=== PATIENT | male | born 1995 | race Caucasian/White ===

== ENCOUNTER 2023-06-06 20:38 | Emergency (ER) | payer SELFPAY ==
[2023-06-06 20:51] VITALS: BP 132/74; PULSE 78; RESP 18; TEMP 36.9; O2SAT 99; BMI 30.4
--- NOTE | 2023-06-06 21:16 | ED.BACK ---
HPI - Back Pain/Injury General Chief Complaint: Back Injury/Pain Stated Complaint: Back Pain Time Seen by Provider: 06/06/23 21:01 History of Present Illness HPI Narrative: This 27-year-old male comes in reporting low back pain. He was lifting some heavy K eggs about 9 hours prior to arrival and had a sudden onset of pain in his low back. He states that he had similar pain years ago but otherwise is healthy. He does not report any pain going down either leg. Related Data Home Medications Medication Instructions Recorded Confirmed No Known Home Medications 06/06/23 06/06/23 Allergies Allergy/AdvReac Type Severity Reaction Status Date / Time No Known Drug Allergies Allergy Verified 06/06/23 20:54 Review of Systems Status of ROS: Reports: 10 or more systems reviewed and unremarkable except as noted in History and below Narrative: Constitutional: No fevers, no weight gain or loss. Eyes: No discharge. No vision changes. HENT: No congestion, no sore throat, no ear pain. Cardiovascular: No chest pain, no palpitations. Respiratory: No shortness of breath, no wheezes, no cough. Gastrointestinal: No abdominal pain, no vomiting, no diarrhea. Genitourinary: No dysuria, no hematuria. Musculoskeletal: Normal range of motion. Low back pain as described above. Skin: No rashes, no pruritis. Neurological: No dizziness, weakness, sensory change, speech change. Endo/Heme/Allergies: No bruising or bleeding. No polydipsia. Pysch: no suicidality, no anxiety, no insomnia. All other systems reviewed and are negative. Exam Narrative: Exam Narrative: Constitutional: Well-developed, well-nourished, no acute distress. HEENT: Normocephalic, atraumatic. Neck: Normal range of motion. Nontender. Supple. Heart: Regular. No murmurs. Normal rate. Intact distal pulses. Lungs: Clear to auscultation. No chest discomfort. No wheezes, rhonchi, or rales. Abdomen: Normal bowel sounds. Nontender. No rebound tenderness. Genitalia: Deferred. Back: No midline tenderness. Normal range of motion. No pain radiating down either leg. Pain is located diffusely across the low back. Extremities: Normal range of motion. No injury. Skin: Intact. No rash. Warm. No erythema or pallor. Neurologic: No altered sensation. No weakness. Alert and oriented. Psychiatric: No suicidality. No anxiety or depression. No insomnia. Nursing notes and vitals signs are reviewed. Const: Vital Signs, click to edit/add: Vital Signs - 24 hr 06/06/23 20:51 Temperature 98.5 F Pulse Rate [Right Pulse Oximeter] 78 Respiratory Rate 18 Blood Pressure [Ri ght Upper Arm] 132/74 Pulse Oximetry 99 Oxygen Delivery Me thod Room Air Course Vital Signs Vital signs: Initial Vital Signs Temperature 98.5 F 06/06/23 20:51 Temperature Source Temporal Artery Scan 06/06/23 20:51 Pulse Rate 78 06/06/23 20:51 Respiratory Rate 18 06/06/23 20:51 Blood Pressure 132/74 06/06/23 20:51 Blood Pressure Mean 93 06/06/23 20:51 Blood Pressure Position Sitting 06/06/23 20:51 Pulse Oximetry 99 06/06/23 20:51 Oxygen Delivery Method Room Air 06/06/23 20:51 Vital Signs Temperature 98.5 F 06/06/23 20:51 Pulse Rate 78 06/06/23 20:51 Respiratory Rate 18 06/06/23 20:51 Blood Pressure 132/74 06/06/23 20:51 Pulse Oximetry 99 06/06/23 20:51 Oxygen Delivery Method Room Air 06/06/23 20:51 Temperature 98.5 F 06/06/23 20:51 Pulse Rate 78 06/06/23 20:51 Respiratory Rate 18 06/06/23 20:51 Blood Pressure 132/74 06/06/23 20:51 Pulse Oximetry 99 06/06/23 20:51 Oxygen Delivery Method Room Air 06/06/23 20:51 MDM - Back Pain/Injury MDM Narrative Medical decision making narrative: This patient comes in with low back pain due to a muscle strain as he was lifting some heavy items earlier today. There is no sign of radicular symptoms or radiating pain. The patient has normal range of motion and is ambulatory. X-ray imaging is not indicated given no significant mechanism of injury. The patient did receive an intramuscular injection of Toradol 30 mg. Prescriptions for Toradol and Flexeril are also provided. A return to work note is also written. Discharge Plan Discharge Clinical Impression: Acute lumbar myofascial strain Patient Disposition: Home, Self-Care Condition: Stable Additional Instructions: Take medications as needed and indicated. Increase activity as tolerated. Follow up with MD or return if worsening. Prescriptions: No Action No Known Home Medications Stand Alone Forms: [employer] Info Instructions
[2023-06-06 21:26] VITALS: TEMP 36.9
[2023-06-06] MEDS: KETOROLAC 30 MG/ML inj IM (21:26)
[2023-06-06 21:30] VITALS: BP 125/84; PULSE 84; RESP 18; TEMP 36.9; O2SAT 99
[2023-06-06 21:35] VITALS: BP 125/84; PULSE 84; RESP 18; TEMP 36.9
== END 2023-06-06 21:35 | disposition home or self-care (01) ==
LOC: ED 21:33
PROVIDERS: Emergency Provider Emergency Medicine Emergency Medical Services
DX: S39.012A Strain of muscle, fascia and tendon of lower back, initial encounter (principal); X50.0XXA Overexertion from strenuous movement or load, initial encounter
CPT/HCPCS: 96372; 99284; J1885

== ENCOUNTER 2024-02-10 05:07 | Emergency (ER) | payer BC, SELFPAY ==
[2024-02-10 05:19] VITALS: BP 142/77; PULSE 88; RESP 30; TEMP 37.1; O2SAT 100; BMI 32.1
[2024-02-10] MEDS: LORazepam 0.5 MG TABLET PO (05:43)
--- NOTE | 2024-02-10 05:46 | ED_ITS ---
HPI - General Adult General Chief complaint: Anxiety Stated complaint: panic attack Time Seen by Provider: 02/10/24 05:22 Source: patient Mode of arrival: ambulatory History of Present Illness HPI narrative: Patient dropped off by a friend the emergency department. When he awoke at 4:00 a.m. this morning, he had a feeling of anxiety accompanied by feeling of shortness of breath and numbness and tingling in his bilateral hands. No loss of neurological function or chest pain. No feelings of arrhythmia. He initially tells me that he does not know what could be triggering is panic attacks but then tells me that he has had this once before and knew it was anxiety also. He tells me that he did not have panic attacks or anxiety as a child but then tells me that he cannot remember most of his childhood and quickly Steers the conversation away from this. He notes no headache, no vision change, no injury or trauma. He did not try any interventions to diffuse his anxiety prior to coming to the emergency department. He has never been in therapy, he does not have a primary care doctor, he has never taken medication for anxiety. No appetite changes. He states that he drinks alcohol and smokes marijuana on the weekends, not typically during the week. Denies any stimulant drugs. He denies suicidal thoughts, homicidal thoughts, hallucinations, delusions or prior suicide attempts. Past medical history benign per his report, no major long-term health problems. No prior similar ED visits. Has been seen for muscular strain within the last year only. No primary care visits listed. Marijuana and alcohol episodic as stated above. ROS notable for the anxiety as stated above, remainder of ROS is negative times 12 systems. Related Data Previous Rx's Medication Instructions Recorded hydroxyzine HCl 25 mg tablet 25 - 50 mg (1 - 2 x 25 mg) PO 02/10/24 DAILY PRN Panic attack #15 tabs Allergies Allergy/AdvReac Type Severity Reaction Status Date / Time No Known Drug Allergies Allergy Verified 02/10/24 05:18 [facility] Medical History No significant past medical history Surgical History No significant past surgical history Social History Smoking Status: Never smoker Second hand tobacco smoke exposure: No How often do you have a drink containing alcohol: never How often do you have six or more drinks on one occasion: Never AUDIT-C Alcohol total score: 0 Non-prescribed substance use: marijuana (any form) Exam Const: Vital Signs, click to edit/add: Vital Signs - 24 hr 02/10/24 05:19 Temperature 98.8 F Pulse Rate [Right Pulse Oximeter] 88 Respiratory Rate 30 H Blood Pressure [Ri ght Upper Arm] 142/77 H Pulse Oximetry 100 Oxygen Delivery Me thod Room Air Documenting provider has reviewed patient's vital signs: yes Common normals: no apparent distress and alert General appearance: well developed and anxious Other: Well hydrated, not intoxicated, reasonable. HENMT: Common normals: normocephalic, moist oral mucous membranes and oropharynx normal Head and scalp: normocephalic Mouth: oral and palatal mucosa normal Eye: Common normals: conjunctivae normal General eye: normal appearance of both eyes Conjunctiva: conjunctiva(e) normal Neck & C-Spine: Common normals: full ROM General: normal visual inspection Resp: Common normals: normal respiratory effort, no use of accessory muscles and clear to auscultation bilaterally Effort & inspection: able to speak in complete sentences Auscultation: clear to auscultation bilaterally Other: Respiratory rate is 12-16 at the time of my exam. Cardio: Common normals: regular rate, regular rhythm, S1 normal heart sound, S2 normal heart sound and no murmurs Rate: regular rate Rhythm: regular rhythm Heart sounds: S1 normal and S2 normal GI: Common normals: Normal to inspection, nondistended, normoactive bowel sounds present, soft to palpation, non-tender, no hepatosplenomegaly and no masses Palpation: soft and no hepatosplenomegaly Extremity: Common normals: normal to inspection and normal capillary refill Other: No signs of self-injury Neuro: Sensorium/orientation: alert Cranial nerves: CN normal except as noted Speech: speech normal Motor exam: strength 5/5 throughout, no tremor noted and no movement abnormalities noted Psych: Common normals: thought process normal Appearance: grossly normal Attitude: engaged Activity/motor behavior: appropriate eye contact Mood and affect: anxious Thought process: normal thought process Thought content: normal thought content Insight: fair Judgement: fair Skin: Common normals: no rashes or lesions noted General skin exam: no rashes or lesions noted Course Course ED Course: 28-year-old male presenting for anxiety and panic attack. His assessment does seem correct. EKG reviewed. Normal sinus rhythm with no signs of arrhythmia or ischemia. Respiratory rate has improved with rest here in the emergency department. There are no features of suicidality, or intent of self-harm. Patient is counseled on anxiety and panic attacks. Strongly encouraged establishing with a primary care provider and the therapist to begin working through these issues. Counseled how through this he can learn techniques to help diffuse his panic attacks. Counseled that daily low-dose antianxiety medication is most effective to help prevent anxiety and panic. These can be prescribed through a primary care provider. Will be given 0.5 mg of lorazepam p.o. x1 here in the ED and a prescription for Vistaril to use up to once daily as needed for panic attacks. He was counseled that this medication approaches not as effective as preventative dosing and primary care management. He is counseled to avoid alcohol and marijuana as the rebound effect of coming off of these medications can often be more bothersome than without using them. Counseled on daily exercise, healthy eating and adequate sleep. Alarm symptoms such as suicidal thoughts, hallucinations, etc. would warrant ED presentation. He verbalizes understanding and agreement. He is encouraged to call for a ride home and or to wait until the taxi starts running in about an hour. He says that he would like to walk home and lives less than 2 miles away. The February weather is chilly but not dangerously cold. He seems to have appropriate medical decision making and will be allowed to do so if he so wishes. He does have adequate winter wear that happens to be high visibility and reflective with him. Vital Signs Vital signs: Initial Vital Signs Temperature 98.8 F 02/10/24 05:19 Temperature Source Temporal Artery Scan 02/10/24 05:19 Pulse Rate 88 02/10/24 05:19 Pulse Rhythm Regular 02/10/24 05:19 Respiratory Rate 30 H 02/10/24 05:19 Blood Pressure 142/77 H 02/10/24 05:19 Blood Pressure Mean 98 02/10/24 05:19 Pulse Oximetry 100 02/10/24 05:19 Oxygen Delivery Method Room Air 02/10/24 05:19 Vital Signs Temperature 98.8 F 02/10/24 05:19 Pulse Rate 88 02/10/24 05:19 Respiratory Rate 30 H 02/10/24 05:19 Blood Pressure 142/77 H 02/10/24 05:19 Pulse Oximetry 100 02/10/24 05:19 Oxygen Delivery Method Room Air 02/10/24 05:19 Temperature 98.8 F 02/10/24 05:19 Pulse Rate 88 02/10/24 05:19 Respiratory Rate 30 H 02/10/24 05:19 Blood Pressure 142/77 H 02/10/24 05:19 Pulse Oximetry 100 02/10/24 05:19 Oxygen Delivery Method Room Air 02/10/24 05:19 Medications Administered Medications: Generic Name Dose Route Start Last Admin Trade Name Freq PRN Reason Stop Dose Admin Lorazepam 0.5 mg 02/10/24 05:37 02/10/24 05:43 Lorazepam 0.5 Mg Tablet PO 02/10/24 05:38 0.5 mg ONCE ONE Administration Discharge Plan Discharge Clinical Impression: Acute anxiety Patient Disposition: Home, Self-Care Condition: Improved Instructions: Panic Disorder (ED) Additional Instructions: As we discussed, I agree with you that your physical symptoms are manifestations of anxiety. Unfortunately, people that are prone to panic attacks tend to get them again. The best management for this is to see a primary care provider, get referred for counseling and consider taking a low-dose daily medication to help prevent panic attacks. I would recommend that you call the primary care clinic to schedule with a provider right away to discuss your anxiety. In the meantime, I do not recommend alcohol or marijuana as the rebound effect from being off of those medications during the week as compared to taking them on the weekends tends to cause a worsening rebound affect on anxiety. Daily exercise is often helpful as is eating a well-balanced diet. Aim to get at least 8 hours of sleep per night. It is okay to use 10 mg of melatonin at bedtime to help herself sleep and to establish a healthy or sleep routine. I have given you a short-term supply of Vistaril, a common antianxiety medication that is taken at the onset of a panic attack to help reduce it. This is not as effective as the daily medications that can be used to prevent panic attacks. I am hopeful that this will give you some temporary relief until you can get into counseling and began working through the issues causing your panic attacks. For the Vistaril, take 1 tablet at the onset of a panic attack and repeat in 45 minutes 1 time if it is not helping. I have given you a note to be off of work today, but you may resume all typical duties tomorrow. You should come to an emergency department if your having serious suicidal thoughts, hallucinations or other medical complications. Activity Level: No Restrictions Discharge Diet: Regular Prescriptions: New hydroxyzine HCl 25 mg tablet 25 - 50 mg PO DAILY PRN (Reason: Panic attack) Qty: 15 0RF Follow Up/Referrals: Provider,Not a Local [Primary Care Provider] - Stand Alone Forms: [employer] Info Instructions
== END 2024-02-10 06:05 | disposition home or self-care (01) ==
LOC: ED 05:45
PROVIDERS: Emergency Provider Family Medicine
DX: F41.9 Anxiety disorder, unspecified (principal)
CPT/HCPCS: 99283; 99284; A9270

== ENCOUNTER 2024-11-11 12:30 | Emergency (ER) | payer SELFPAY ==
--- OUTSIDE RECORDS SUMMARY | 2024-11-11 12:32 | XMS_ITS | Clinical Summary ---
Author Organization [employer] [facility] [facility] Address [place], [place] [address] Care Team Providers Care Train Clerk Name Role Phone Pcp, No Primary Care Provider Unavailabl e Allergies No known active allergies Medications hydrOXYzine HCL (ATARAX) 25 mg tablet TAKE 1-2 TABLETS BY MOUTH DAILY NEEDED 02/10/2024 Active Immunizations Name Administration Dates Next Due COVID-19 vaccine (Sarah-J&J) PF, MDV COVID-19 vaccine (Moderna 100mcg/0.5mL) PF, MDV 12/15/2021 Hepatitis A (Peds) 09/24/2008 Hepatitis A (Peds),Unspecified 04/15/2009 Human Papilloma Virus Vaccine 07/02/2011, 010 Inactivated Polio Vaccine 09/24/2008 Influenza, IIV4 12/19/2020 Influenza, Whole Virus 09/24/2008 Tdap 10/12/2018 Social History Tobacco Use Types Packs/Day Years Used Date Smoking Tobacco: Some Days Cigarettes 0.3 4 Smokeless Tobacco: Never Tobacco Cessation:Ready to Q uit: No; Counseling Given: Yes Alcohol Use Standard Drinks/Week Comments Not Currently 0 (1 standard drink = 0.6 oz pur e alcohol) C Utilities Answer Date Recorded Do you have trouble paying f or utilities (for example, heat, electricity, water, phone)? Yes 03/03/2024 PHQ-2 Answer Date Recorded PHQ-2 TOTAL SCORE 0 03/03/2024 Social Connections Answer Date Recorded Do you often feel lonely or isolated from those around you? 0 03/03/2024 Financial Resource Strain Answer Date R ecorded Difficulty of Paying Living Expenses 3 03/03/2024 Difficulty of Paying Living Expenses Not on file 03/03/2024 Food Insecurity Answer Date Recorded Do you worry your food will run out before you are able to buy more? 1 03/03/2024 Transportation Needs Answer Date Record ed Does lack of transportation keep you from medica l appointments? 1 03/03/2024 Does lack of transportation keep you from work, meetings or getting things that you need? 1 03/03/2024 Housing Stability Answer Date Recorded What is your housing situation today? 1 03/03/2024 Sex and Gender Information Value Date Recorded Sex Assigned at Not on file Legal Sex Male 5:49 PM CDT Gender Identity Not on file Sexual Orientation Not on file Obstetrics History Last Filed Vital Signs Vital Sign Reading Time Taken Comments Blood Pressure 98/61 03/03/2024 3:28 PM CDT Pulse 74 03/03/2024 3:28 PM CDT Temperature 36.8 C (98.2 F) 03/03/2024 3:28 PM CDT Respiratory Rate 24 10/12/2018 8:49 PM DIRECTOR OF MIDWIF[employer]/STAFF MIDWIFE Oxygen Saturation 98% 03/03/2024 3:28 PM CDT Inhaled Oxygen Concentration - - Weight 94.6 kg (208 lb 9.6 oz) 03/03/2024 3:28 P M CDT Height 173.5 cm (5' 8.31) 03/03/2024 3:28 PM CD T Body Mass Index 31.43 03/03/2024 3:28 PM CDT Plan of Treatment Health Maintenance Due Date Last Done Comments Pneumococcal series for age 6-49 (1 of 2 - PCV) 2002 HIV for age 15-65 2011 Hepatitis C screening for age 18-79 2014 COVID-19 vaccine series ( season) 2024 12/15/2021, 04/16/2021 Influenza for age 9-49 07/09/2024 12/19/2020, 2007 BMI (ht and wt on same day) for age 18+ 03/03/2025 0 03/03/2024 Depression screening for age 12+ 03/03/2025 03/03/20 24 Tetanus booster 10/12/2028 10/12/2018 Tdap Completed 10/12/[address] [address] Care Teams Train Clerk Relationship Specialty Start Date End Date Pcp, No . PCP - General 10/12/18
--- OUTSIDE RECORDS SUMMARY | 2024-11-11 12:32 | XMS_ITS | Continuity of Care Document ---
Author Name [facility] User [email or web address] Address Unknown Organization Unknown Address Unknown Procedures FILTER APPLIED:Only known Procedures with Onset Date within the last 5 years Procedure Date Procedure Provider Additional Inform ation Status EMERGENCY DEPT VISIT MOD [facility] (82307) Completed EMERGENCY DEPT VISIT LOW [facility] ([id number]) Completed Encounters FILTER APPLIED:Only known Encounters with Admission Date within the last 5 years Encounter Location Admission Discharge Billing Code [facility] Brandi Hernadez
[2024-11-11 12:50] VITALS: BP 110/68; PULSE 87; RESP 20; TEMP 36.4; O2SAT 99; BMI 31.3
--- NOTE | 2024-11-11 13:09 | CRLHL7_ITS ---
For Patients: As a result of the Century Cures Act, medical imaging exams and procedure reports are released immediately into your electronic medical record. You may view this report before your referring provider. If you have questions, please contact your health care provider. Indication: Frontal headache Technique: Noncontrast head CT Comparison: No comparison Findings: Axial noncontrast images through the brain parenchyma demonstrates no acute intracranial hemorrhage or mass. No midline shift. No abnormal extra-axial air fluid collections. Frontal opacification of the sinuses possible small osteoma in the right frontal sinus. Mucosal thickening partial opacification of the left ethmoid air cells opacification of the left sphenoid sinus mild mucosal thickening of the sphenoid sinuses. Skull and scalp are otherwise unremarkable. Impression: 1. No acute intracranial hemorrhage or mass. 2. 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 Mild mucosal thickening of the sphenoid sinuses. Please note that all CT scans at this facility use dose modulation, iterative reconstruction, and/or weight-based dosing when appropriate to reduce radiation dose to as low as reasonably achievable. Dictated by Kathia Navarrete MD @ 11/11/2024 1:43:48 PM (Electronically Signed)
--- NOTE | 2024-11-11 13:10 | ED.HA ---
HPI - Headache General Chief Complaint: Headache/Migraine Stated Complaint: Persistant headache Time Seen by Provider: 11/11/24 12:34 History of Present Illness HPI Narrative: This 28-year-old male comes in with persistent headache over the past couple days. He states that it is a frontal headache and sometimes he feels like his right eye is tearing. He states that it is a constant headache but he denies having any nausea, vomiting, sensitivity to light, or neurologic changes. He states that he is otherwise in good health and does not typically get headaches. He does not report any upper respiratory symptoms. Related Data Previous Rx's ?Medication ?Instructions ?Recorded hydroxyzine HCl 25 mg tablet 25 - 50 mg (1 - 2 x 25 mg) PO 02/10/24 DAILY PRN Panic attack #15 tabs amoxicillin 875 mg-potassium 1 tab PO BID #14 tabs 11/11/24 clavulanate 125 mg tablet ketorolac 10 mg tablet 10 mg PO Q8H 5 days #15 tabs 11/11/24 Allergies Allergy/AdvReac Type Severity Reaction Status Date / Time No Known Drug Allergies Allergy Verified 02/16/24 13:28 Review of Systems Status of ROS: Reports: 10 or more systems reviewed and unremarkable except as noted in History and below Narrative: Constitutional: No fevers, no weight gain or loss. Eyes: No discharge. No vision changes. HENT: No congestion, no sore throat, no ear pain. Cardiovascular: No chest pain, no palpitations. Respiratory: No shortness of breath, no wheezes, no cough. Gastrointestinal: No abdominal pain, no vomiting, no diarrhea. Genitourinary: No dysuria, no hematuria. Musculoskeletal: Normal range of motion. Skin: No rashes, no pruritis. Neurological: No dizziness, weakness, sensory change, speech change. Endo/Heme/Allergies: No bruising or bleeding. No polydipsia. Pysch: no suicidality, no anxiety, no insomnia. All other systems reviewed and are negative. PFS PFS Medical History No significant past medical history Surgical History No significant past surgical history Social History Smoking Status: Never smoker Second hand tobacco smoke exposure: No How often do you have a drink containing alcohol: never How often do you have six or more drinks on one occasion: Never AUDIT-C Alcohol total score: 0 Non-prescribed substance use: marijuana (any form) Exam Narrative: Exam Narrative: Constitutional: Well-developed, well-nourished, no acute distress. HEENT: Normocephalic, atraumatic. Neck: Normal range of motion. Nontender. Supple. Heart: Regular. No murmurs. Normal rate. Intact distal pulses. Lungs: Clear to auscultation. No chest discomfort. No wheezes, rhonchi, or rales. Abdomen: Normal bowel sounds. Nontender. No rebound tenderness. Genitalia: Deferred. Back: No midline tenderness. Normal range of motion. Extremities: Normal range of motion. No injury. Skin: Intact. No rash. Warm. No erythema or pallor. Neurologic: No altered sensation. No weakness. Alert and oriented. Psychiatric: No suicidality. No anxiety or depression. No insomnia. Nursing notes and vitals signs are reviewed. Const: Vital Signs, click to edit/add: Vital Signs - 24 hr 11/11/24 12:50 Temperature 97.5 F L Pulse Rate [Pulse Oximeter] 87 Respiratory Rate 20 Blood Pressure [Ri ght Upper Arm] 110/68 Pulse Oximetry 99 Oxygen Delivery Me thod Room Air Course Vital Signs Vital signs: Initial Vital Signs Temperature 97.5 F L 11/11/24 12:50 Temperature Source Temporal Artery Scan 11/11/24 12:50 Pulse Rate 87 11/11/24 12:50 Respiratory Rate 20 11/11/24 12:50 Blood Pressure 110/68 11/11/24 12:50 Blood Pressure Mean 82 11/11/24 12:50 Blood Pressure Position Sitting 11/11/24 12:50 Pulse Oximetry 99 11/11/24 12:50 Oxygen Delivery Method Room Air 11/11/24 12:50 Vital Signs Temperature 97.5 F L 11/11/24 12:50 Pulse Rate 87 11/11/24 12:50 Respiratory Rate 20 11/11/24 12:50 Blood Pressure 110/68 11/11/24 12:50 Pulse Oximetry 99 11/11/24 12:50 Oxygen Delivery Method Room Air 11/11/24 12:50 Temperature 97.5 F L 11/11/24 12:50 Pulse Rate 87 11/11/24 12:50 Respiratory Rate 20 11/11/24 12:50 Blood Pressure 110/68 11/11/24 12:50 Pulse Oximetry 99 11/11/24 12:50 Oxygen Delivery Method Room Air 11/11/24 12:50 Medications Administered Medications: Discontinued Medications Generic Name Dose Route Start Last Admin Trade Name Freq PRN Reason Stop Dose Admin Diphenhydramine HCl 50 mg 11/11/24 13:09 11/11/24 13:31 Diphenhydramine 50 Mg/Ml Inj IVP 11/11/24 13:10 50 mg ONCE ONE Administration Ketorolac Tromethamine 30 mg 11/11/24 13:09 11/11/24 13:31 Ketorolac 30 Mg/Ml Inj IVP 11/11/24 13:10 30 mg ONCE ONE Administration Methylprednisolone Sodium Succinate 125 mg 11/11/24 13:09 11/11/24 13:30 Methylprednisolone Sod Succ 62.5 Mg/Ml (125) IVP 11/11/24 13:10 125 mg ONCE ONE Administration Ondansetron HCl 4 mg 11/11/24 13:09 11/11/24 13:30 Ondansetron 2 Mg/Ml Inj IVP 11/11/24 13:10 4 mg ONCE ONE Administration MDM - Headache MDM Narrative Medical decision making narrative: This patient comes in reporting headache as described above. He is not showing any sign of neurologic deficits and arrives with normal vital signs. An IV was established where he did receive IV doses of Toradol 30 mg, Benadryl 50 mg, Zofran 4 mg, and Solu-Medrol [address] imaging of his head is obtained and returns dobbs sinusitis with almost complete opacification. This is likely the cause of his headache symptoms. I did provide prescriptions for Augmentin and Toradol. Lab Data Labs: Lab Results 11/11/24 Range/Units 12:59 SARS-CoV-2 (PCR) Negative SARS-CoV-2 (Negative) Influenza Type A (PCR) Negative PCR FLU A (Negative) Influenza Type B (PCR) Negative PCR FLU B (Negative) RSV (PCR) Negative PCR RSV (Negative) Imaging Data CT scan - head: Radiologist's impression: 1. No acute intracranial hemorrhage or mass. 2. 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 Mild mucosal thickening of the sphenoid sinuses. Discharge Plan Discharge Clinical Impression: Sinusitis Patient Disposition: Home, Self-Care Condition: Stable Additional Instructions: Take medication as prescribed. Use Tylenol also as needed and directed. Recommended to use a nasal spray such as Flonase or Nasonex also. Follow up with MD return if worsening. Prescriptions: New ketorolac 10 mg tablet 10 mg PO Q8H 5 Days Qty: 15 0RF amoxicillin-pot clavulanate 875-125 mg tablet 1 tab PO BID Qty: 14 0RF No Action hydroxyzine HCl 25 mg tablet 25 - 50 mg PO DAILY PRN (Reason: Panic attack) Qty: 15 0RF Follow Up/Referrals: Provider,Not a Local [Primary Care Provider] - Stand Alone Forms: [facility] Info Instructions
[2024-11-11] MEDS: METHYLPREDNISOLONE SOD SUCC 62.5 MG/ML (125) 125 MG IVP (13:30)
[2024-11-11] MEDS: ONDANSETRON 2 MG/ML inj 4 MG IVP (13:30)
[2024-11-11] MEDS: diphenhydrAMINE 50 MG/ML inj IVP (13:31)
[2024-11-11] MEDS: KETOROLAC 30 MG/ML inj IVP (13:31)
[2024-11-11 13:38] LABS: PCR FLU A Negative PCR FLU A (Negative); PCR FLU B Negative PCR FLU B (Negative); PCR RSV Negative PCR RSV (Negative); SARS PCR* Negative SARS-CoV-2 (Negative)
--- OUTSIDE RECORDS SUMMARY | 2024-11-11 13:54 | XMS_ITS | Continuity of Care Document ---
Author Name [facility] User [facility] Address Unknown Organization Unknown Address Unknown Procedures FILTER APPLIED:Only known Procedures with Onset Date within the last 5 years Procedure Date Procedure Provider Additional Inform ation Status EMERGENCY DEPT VISIT MOD [facility] (04545) Completed EMERGENCY DEPT VISIT LOW [facility] (81310) Completed Encounters FILTER APPLIED:Only known Encounters with Admission Date within the last 5 years Encounter Location Admission Discharge Billing Code [facility] Brandi Hernadez
--- OUTSIDE RECORDS SUMMARY | 2024-11-11 13:54 | XMS_ITS | Clinical Summary ---
Author Organization [facility] Address [place], [place] [address] Care Team Providers Care Patient Financial Services Specialist Name Role Phone Pcp, No Primary Care [...] CDT Respiratory Rate 24 10/12/2018 8:49 PM MEDICARE BILLER Oxygen Saturation 98% 03/03/2024 3:28 PM CDT [...] booster 10/12/2028 10/12/2018 Tdap Completed 10/12/[address] [place] [address] [place] [address] Care Teams Patient Financial Services Specialist Relationship Specialty Start Date End Date Pcp, No . PCP - General 10/12/18
== END 2024-11-11 14:13 | disposition home or self-care (01) ==
PROVIDERS: Emergency Provider Emergency Medicine Emergency Medical Services
DX: J32.9 Chronic sinusitis, unspecified (principal)
CPT/HCPCS: 70450; 87631; 96374; 96375; 99284; J1200; J1885; J2405; J2919